=== PATIENT | male | born 1955 | race Caucasian/White ===

== ENCOUNTER 2024-04-07 10:14 | Inpatient (IN) ==
--- NOTE | 2024-03-24 09:32 | Anesthesiology Consultation ---
Date of Service March 24, 2024 Assessment & Plan (1) Encounter for pre-operative examination: - Check BSG DOS - Infectious disease screening: Per assessment on 03/24/24- No known recent infectious disease contacts or current infectious disease symptoms. Chart Review Chart Review: Acceptable Risk for Surgery and Patient NOT seen in Pre Admission Testing History Surgery Operation Date: 04/07/24 07:30 Proposed Procedures p Robotic Assisted Laparoscopic Radical Retropubic Prostatectomy, Possible Open, Possible Pelvic Pain Lymph Node Dissection - Kevin Yousif MD Height/Weight Height: 6 ft Weight: 86.183 kg Allergies Allergy/AdvReac Type Severity Reaction Status Date / Time No Known Allergies Allergy Verified 03/24/24 08:40 Medications Home Medications Medication Instructions Recorded Confirmed Last Taken amlodipine 10 mg tablet 10 mg PO QAM 09/21/23 03/24/24 Unknown aspirin 81 mg tablet,delayed 81 mg PO HS 09/21/23 03/24/24 Unknown release (Adult Aspirin Regimen) atenolol 50 mg tablet 50 mg PO QAM 09/21/23 03/24/24 Unknown esomeprazole magnesium 40 mg 40 mg PO QAM 09/21/23 03/24/24 Unknown capsule,delayed release glipizide 10 mg tablet 10 mg PO QAM 09/21/23 03/24/24 Unknown losartan 100 1 tab PO QAM 09/21/23 03/24/24 Unknown mg-hydrochlorothiazide 25 mg tablet lovastatin 40 mg tablet 40 mg PO QAM 09/21/23 03/24/24 Unknown metformin 1,000 mg tablet 1,000 mg PO BID 09/21/23 03/24/24 Unknown pioglitazone 30 mg tablet 30 mg PO QAM 09/21/23 03/24/24 Unknown semaglutide 2 mg/dose (8 mg/3 mL) 2 mg subcut Q7D 09/21/23 03/24/24 Unknown subcutaneous pen injector (Ozempic) potassium chloride 20 mEq 20 meq PO QAM 03/24/24 03/24/24 Unknown tablet,extended release Past Medical History Medical History GERD (gastroesophageal reflux disease) History of asthma As child, "outgrew it" Hyperlipidemia Hypertension Prostate cancer Dx 05/2023 Type 2 diabetes mellitus NIDDM Past Family History Family History Grandfather Diabetes Mother Hypertension Brother Prostate cancer Past Surgical History Surgical History Hx of arthroscopy of right knee Hx of cardiac cath 2013- no stents Hx of colonoscopy Hx of detached retina repair x2, right eye Hx of eye surgery "buckle/nimo piece put in eye" "Got most of right eye vision back" Hx of partial thyroidectomy ~2003 Hx of repair of right rotator cuff 25 years ago Social History Smoking Status: Never smoker Do You Dip or Chew Tobacco: No Hx Alcohol Use: Yes alcohol intake frequency: holidays/special occasions only Hx Substance Use: No substance use type: does not use Lab Results Anesthesia Preop Results Results Anesthesia Widget: WBC 4.38 K/uL L 03/10/24 Hgb 12.8 g/dL L 03/10/24 Hct 36.7 % L 03/10/24 Plt 224 K/uL (130.0-400.0) 03/10/24 Na 136 mmol/L (136-145) 03/10/24 K 4.0 mmol/L (3.5-5.1) 03/10/24 Cl 102 mmol/L (98-107) 03/10/24 CO2 31.1 mmol/L (21-32) 03/10/24 BUN 15.7 mg/dL (7-18) 03/10/24 Creat 1.12 mg/dL (0.6-1.4) 03/10/24 Glucose Level 187 mg/dL H 03/10/24 Testing Laboratory Results Urine culture (03/10/24): no growth PSA (03/10/24): 10.500 Electrocardiogram Date: 05/28/23 SR with first degree AVB with occasional supraventricular premature complexes at 65bpm. NS IVCD. Chest X-Ray Date: 03/10/24 Findings: + NAD Other Testing PET tumor skull-mid thigh Date: 01/20/24 FINDINGS: HEAD AND NECK: There is normal distribution of F-18 radiopharmaceutical in the visualized brain with no evidence of abnormal radiopharmaceutical uptake. It should be noted that a contrast enhanced CT or MRI is more sensitive for evaluation of brain masses. There is no FDG-avid disease or significant lymphadenopathy in the head and neck. A right thyroid nodule is incidentally seen. CHEST: There is no pleural or pericardial effusion. There is no air-space disease or suspicious lung nodule. No abnormal FDG activity is noted in the chest. ABDOMEN/PELVIS: Below the diaphragm, tracer is distributed physiologically in the gastrointestinal and genitourinary tracts. Faint prostatic focal uptake is seen in the left mid gland to apex, SUV max 3.76. Bilateral parapelvic cysts are seen. The appendix is normal. Diverticulosis is seen without diverticulitis. MUSCULOSKELETAL: There is no FDG-avid or destructive bone lesion. IMPRESSION: Uptake in the prostate compatible with primary disease with no evidence of metastatic foci.
[~2024-04-07 10:14] MED LIST: DEXAMETHASONE SOD INJ 4 MG/ML VIAL ONE; LIDOCAINE 2% 2 ML VIAL/AMP(20MG/ML) INFIL ONE; MIDAZOLAM HCL 1 MG/ML 2ML VIAL ONE; ONDANSETRON INJ 2 MG/ML 2 ML VIAL ONE; PROPOFOL IV EMULSION 10 MG/ML 20 ML VIAL IV ONE; ROCURONIUM BROMIDE 10 MG/ML 5 ML VIAL IV ONE; fentaNYL citrate PF 100 MCG/2 ML VIAL ONE
[2024-04-07] MEDS: LR 15ML/HR IV SCH (11:11)
[2024-04-07] MEDS: LACTATED RINGER'S 1,000 ML IV SCH (11:12)
[2024-04-07] MEDS: HEPARIN SOD 5,000 UNIT/0.5 ML VIAL SQ SCH ×2 (11:17→20:59)
--- NOTE | 2024-04-07 11:49 | History & Physical Report ---
Date of Service April 07, 2024 Assessment & Plan (1) Prostate cancer: Plan: We reviewed the plan for robotic radical prostatectomy and pelvic lymph node dissection. We reviewed risks and benefits of surgery. He expressed understanding and would like to proceed with surgery. History of Present Illness Primary Care Provider: Li Galaviz This is a 68-year-old male followed by urology for prostate cancer. He presents to the OR for robotic radical prostatectomy and pelvic lymph node dissection. He denies any changes in his health. Allergies Allergy/AdvReac Type Severity Reaction Status Date / Time No Known Allergies Allergy Verified 04/07/24 10:40 Home Medications Medication Instructions Recorded Confirmed Type amlodipine 10 mg tablet 10 mg PO QAM 09/21/23 04/07/24 History aspirin 81 mg tablet,delayed 81 mg PO HS 09/21/23 04/07/24 History release (Adult Aspirin Regimen) atenolol 50 mg tablet 50 mg PO QAM 09/21/23 04/07/24 History esomeprazole magnesium 40 mg 40 mg PO QAM 09/21/23 04/07/24 History capsule,delayed release glipizide 10 mg tablet 10 mg PO QAM 09/21/23 04/07/24 History losartan 100 1 tab PO QAM 09/21/23 04/07/24 History mg-hydrochlorothiazide 25 mg tablet lovastatin 40 mg tablet 40 mg PO QAM 09/21/23 04/07/24 History metformin 1,000 mg tablet 1,000 mg PO BID 09/21/23 04/07/24 History pioglitazone 30 mg tablet (Actos) 30 mg PO QAM 09/21/23 04/07/24 History semaglutide 2 mg/dose (8 mg/3 mL) 2 mg subcut Q7D 09/21/23 04/07/24 History subcutaneous pen injector (Ozempic) potassium chloride 20 mEq 20 meq PO QAM 03/24/24 04/07/24 History tablet,extended release Past Med/Surg History Problem List Encounter for pre-operative examination Prostate cancer Type 2 diabetes mellitus Elevated PSA Hypertension (Acute) Medical History GERD (gastroesophageal reflux disease) History of asthma As child, "outgrew it" Hyperlipidemia Hypertension Prostate cancer Dx 05/2023 Type 2 diabetes mellitus NIDDM Surgical History Hx of arthroscopy of right knee Hx of cardiac cath 2014- no stents Hx of colonoscopy Hx of detached retina repair x2, right eye Hx of eye surgery "buckle/nimo piece put in eye" "Got most of right eye vision back" Hx of partial thyroidectomy ~2003 Hx of repair of right rotator cuff 25 years ago Family History Grandfather Diabetes Mother Hypertension Brother Prostate cancer Social History Smoking Status: Never smoker Second Hand Exposure: No; Do You Dip or Chew Tobacco: No; Tobacco Cessation Education Requested by Patient: No Hx Alcohol Use: Yes Hx Substance Use: No Preferred Language: [place]ian Communication Ability: Effective Spring Inspector Required: No Beliefs That Will Affect Care: None Current Living Situation: Spouse Other Information That Helps Us Care for You: No Feels Safe at Home: Yes Safety Concerns: Feels Safe At This Time Assistive Devices: Glasses Review of Systems 12 point review of systems negative except for otherwise indicated. Physical Exam Constitutional: well developed and well nourished; no acute distress Eyes: + anicteric sclerae; pupils not irregula r Respiratory: normal respiratory effort; no respiratory distress, does not use accessory muscles and no cough Cardiovascular: well perfused Gastrointestinal (Abdomen): Inspection/Auscultation: abdomen normal to inspection; abdomen not distended Musculoskeletal: Extremities: extremities normal to inspection Skin: normal turgor; no rashes and no lesions Neurologic: moves all extremities and awake Psychiatric: Orientation: alert and oriented x 3 Results & Data Vital Signs (Past 12 Hours) Vital Signs Temp Pulse Resp BP Pulse Ox O2 Del Method 04/07/24 10:51 Room Air 04/07/24 10:51 37 C 79 20 156/93 H 98 Room Air
[2024-04-07] MEDS ORDERED: ePHEDrine sulfate 50 MG/5 ML SYR ONE (11:53)
[2024-04-07] MEDS ORDERED: fentaNYL citrate PF 100 MCG/2 ML VIAL IV PRN (12:09)
[2024-04-07] MEDS ORDERED: HYDROmorphone INJ 1 MG/ML SYRINGE IV PRN (12:09)
[2024-04-07] MEDS ORDERED: ATROPINE SULFATE 0.1 MG/ML 10ML SYR IV PRN (12:09)
[2024-04-07] MEDS ORDERED: ONDANSETRON INJ 2 MG/ML 2 ML VIAL IV PRN ×2 (12:09→18:22)
[2024-04-07] MEDS ORDERED: ePHEDrine sulfate 50 MG/ML AMP IV PRN (12:09)
[2024-04-07] MEDS: ceFAZolin 2000MG 2,000 MG/15 ML SYR IV SCH ×2 (12:14→20:59)
[2024-04-07] MEDS ORDERED: ONDANSETRON INJ 2 MG/ML 2 ML VIAL ONE (13:01)
[2024-04-07] MEDS ORDERED: HYDROmorphone INJ 2 MG/ML SYR/VIAL ONE ×2 (13:52→15:34)
[2024-04-07] MEDS ORDERED: PROPOFOL IV EMULSION 10 MG/ML 20 ML VIAL IV ONE ×2 (13:57→15:20)
[2024-04-07] MEDS ORDERED: ACETAMINOPHEN 1000 MG/100 ML IV IV ONE (15:14)
[2024-04-07] MEDS ORDERED: ceFAZolin 330 MG/ML 1 GM VIAL ONE (15:16)
[2024-04-07] MEDS: BUPIVACAINE 0.5 % 5 MG/1 ML MPF 30ML VIAL ONE (15:43)
[2024-04-07] MEDS ORDERED: SUGAMMADEX SODIUM 200 MG/2 ML VIAL IV ONE (15:49)
--- NOTE | 2024-04-07 16:04 | Operative Report ---
PG Post Operative Report Pre & Post Diagnosis Operation Date: 04/07/24 12:00 Pre-Op Diagnosis: Prostate Cancer Post-Op Diagnosis: Prostate Cancer I identified the patient and participated in the time-out.: Yes Procedure Operation Date: 04/07/24 12:00 Actual Procedures p Robotic Assisted Laparoscopic Radical Retropubic Prostatectomy, Bilateral Pelvic Lymph Node Dissection(Not Applicable) - Kevin Yousif MD Surgeon Kevin Yousif MD Hydramatic Mechanic SALOME Trimble Estimated Blood Loss 20 Findings Consistent with Post-Op Diagnosis Specimens 1) periprostatic fat 2) right pelvic lymph nodes 3) left pelvic lymph nodes 4) prostate, vas deferens, seminal vesicles Drains Mahajan catheter per urethra Anesthesia Type General Complications none Disposition Accompanied Patient To Recovery: Yes Disposition: Recovery Room Indications This is a 60-year-old male followed by urology for prostate cancer. He presents the OR for robotic radical prostatectomy. Description of Procedure The patient was identified in the preoperative holding area and informed consent was confirmed. He was then brought to the operating room where general anesthesia was initiated. He was placed supine on the operating room table with all pressure points appropriately padded. His abdomen and genitalia were prepped and draped in the usual sterile fashion and a timeout was performed. A 2 cm incision was made above the umbilicus and then a Veress needle was used to obtain access to the abdomen. Proper position was confirmed with the drop test and low initial insufflation pressure. The abdomen was insufflated with CO2 to a pressure of 15 mmHg. An 8 mm robotic port was placed in the incision and the robotic camera was inserted. The abdominal cavity was surveyed, demonstrating no injury to intra-abdominal contents. There were some colonic adhesions. The remaining robotic ports were placed under direct visualization, with 2 robotic ports on the left side and 1 robotic port on the right. A 5 mm patient support assistant port was placed in the right upper quadrant. The robot was then docked. The colonic adhesions were divided sharply. This exposed area in the right lower quadrant where the 12 mm patient support assistant port could be placed. Sigmoid adhesions in the left lower quadrant were divided sharply to allow the colon to rotate away from the pelvic vault. Using electrocautery, the bladder was then dropped from the anterior wall of the abdomen, exposing the space of Retzius. This dissection was carried down to expose the pelvic brim and subsequently the anterior surface of the prostate and the endopelvic fascia. The fat overlying the anterior of the prostate was removed and sent for pathologic analysis, labeled as 'periprostatic fat'. The endopelvic fascia was then divided on each side to expose the lateral aspects of the prostate and the lateral aspects of the pedicles. A single 3-0 V-Loc suture was used to ligate the dorsal venous complex to prevent backbleeding in subsequent steps. The fourth arm of the robot was then used to put some gentle traction on the bladder, and the bladder neck was identified. Using electrocautery, the anterior bladder neck was dissected to expose the Mahajan catheter, whose tip was removed from the bladder and held anteriorly. The posterior bladder neck dissection was then completed. At this point bilateral vas deferens were exposed and isolated. The vas deferens were cauterized and then divided. Bilateral seminal vesicles were dissected out as well. Denonvilliers fascia was then divided and the posterior prostate dissection was carried up as far as possible toward the urethra. The pedicles were then divided using combination of clips and sharp dissection, trying to use minimal electrocautery. On the right side, a nerve sparing approach was used. On the left side, a partial nerve sparing approach was used. Attention was turned anteriorly and the dorsal venous complex was divided using sharp dissection and electrocautery. The urethra was isolated and then divided sharply. At this point, the prostate was free and was placed in a specimen bag. Bilateral pelvic lymph node dissection was then performed, and the naseem tissue was sent for pathologic analysis. There was not a significant amount of naseem tissue bilaterally. The pelvis was inspected and meticulous hemostasis was ensured. Double-armed V- Loc suture was then used to re-anastomose the bladder neck with the urethra. Once this was complete, the anastomosis was tested by instilling 120 mL of normal saline into the bladder. Satisfied that the anastomosis was watertight, the catheter balloon was inflated with 10 mL of normal saline. Surgicel was then applied to the lateral aspects of the pelvis for hemostasis. The robot was then undocked. The supraumbilical incision was extended and the prostate was extracted. 0 Vicryl suture was then used to close the fascia at this incision. All skin incisions were closed with 4-0 Monocryl suture and then a layer of Dermabond was applied. The patient was then awakened from anesthesia and was brought to the PACU in stable condition. Rachel Guillard, FORENSIC DOCUMENT EXAMINER acted as the bedside patient support assistant for the duration of the case. She assisted with gaining access, providing retraction and suction. Passing in sutures and applying clips as needed. She also helped with specimen extraction and closing. I attest to the content of the Intraoperative Record and any orders documented therein. Any exceptions are noted below.
--- NOTE | 2024-04-07 16:49 | Anesthesiology Progress Note ---
Date of Service April 07, 2024 Anesthesia Post Procedure Vital Signs Vital Signs: Temp Pulse Resp BP Pulse Ox O2 Del Method 04/07/24 10:51 Room Air 04/07/24 10:51 37 C 79 20 156/93 H 98 Room Air Transfer of Care Handoff Completed per policy Notes Mental Status: alert / awake / arousable Patient Amnestic to Procedure: Yes Nausea / Vomiting: adequately controlled Pain: adequately controlled Airway Patency, RR, SpO2: stable & adequate BP & HR: stable & adequate Hydration State: stable & adequate Anesthetic Complications: no major complications apparent and Pt Satisfied with anesthetic care
[2024-04-07] MEDS ORDERED: PHARMACY GLYCEMIC MGMT CONSULT PRN (18:22)
[2024-04-07] MEDS ORDERED: oxyCODONE HCL IR 5 MG TAB (IMMEDIATE RELEASE) PO PRN ×2 (18:22)
[2024-04-07] MEDS ORDERED: HYDROmorphone INJ 0.5 MG/0.5 ML SYR IV PRN ×2 (18:22)
[2024-04-07] MEDS: ACETAMINOPHEN 325 MG TAB PO SCH (18:57)
[2024-04-07] MEDS: SODIUM CHLORIDE 0.9% 1,000 ML IV SCH (18:58)
[2024-04-07] MEDS ORDERED: GLUCOSE 10 TAB/TUBE PO PRN (18:59)
[2024-04-07] MEDS ORDERED: CARBOHYDRATES FOR HYPOGLYCEMIA PO PRN (18:59)
[2024-04-07] MEDS ORDERED: GLUCOSE 40% GEL 15 GM TUBE PO PRN (18:59)
[2024-04-07] MEDS ORDERED: DEXTROSE 50% 50 ML SYRINGE IV PRN (18:59)
[2024-04-07] MEDS ORDERED: GLUCAGON FOR INJ 1 MG VIAL SQ PRN (18:59)
[2024-04-07] MEDS: LANTUS PER UNIT CHARGE SQ ONE (20:59)
[2024-04-07] MEDS: DOCUSATE SODIUM 100 MG CAP PO SCH (20:59)
[2024-04-07] MEDS: INSULIN ASPART PER UNIT CHARGE SC SCH (20:59)
[2024-04-08] MEDS: INSULIN ASPART PER UNIT CHARGE SC SCH (00:46)
[2024-04-08 06:05] LABS: Basophils # (auto) 0.01 K/uL (0.00-0.20); Basophils % (auto) 0.1 %; Hematocrit (blood only) 30.6 % (42.0-52.0); Hemoglobin 10.7 g/dl (14.0-18.0); Immature Granulocytes # (auto) 0.03 K/uL (0.01-0.20); Immature Granulocytes % (auto) 0.4 %; Lymphocytes # (auto) 0.79 K/uL (1.20-3.40); Mean Corpuscular Hemoglobin 30.8 pg (25.0-34.0); Mean Corpuscular Volume 88.2 fL (80.0-100.0); Mean Platelet Volume 10.3 fL (9.4-12.4); Monocytes # (auto) 0.57 K/uL (0.11-0.59); Monocytes % (auto) 7.2 %; Neutrophils # (auto) 6.52 K/uL (1.40-6.50); Neutrophils % (auto) 82.3 %; Platelet Count 202 K/uL (130-400); RDW Coefficient of Variation 12.7 % (11.5-14.5); RDW Standard Deviation 40.8 fL (36.4-46.3); Red Blood Count 3.47 M/uL (4.70-6.10); White Blood Count 7.92 K/ul (4.8-10.8)
[2024-04-08 06:33] LABS: BUN Creatinine Ratio 14.9 (10-20); Calcium 8.7 mg/dl (8.6-10.3); Creatinine Clr Calc Pharmacy 64.1 ml/min; Potassium 3.4 mmol/L (3.5-5.1)
[2024-04-08 06:52] LABS: Estimated Average Glucose 186 mg/dl; Hemoglobin A1C 8.1 % (4.5-5.6)
[2024-04-08] MEDS: LOVASTATIN 20 MG TAB PO SCH (08:13)
[2024-04-08] MEDS: ATENOLOL 50 MG TABLET PO SCH (08:13)
[2024-04-08] MEDS: amLODIPine BESYLATE 5 MG TAB PO SCH (08:13)
[2024-04-08] MEDS: PANTOprazole 40 MG TAB PO SCH (08:13)
[2024-04-08] MEDS: LOSARTAN/HCTZ 50/12.5MG TAB PO SCH (08:13)
--- NOTE | 2024-04-08 08:17 | Urology Progress Note ---
Date of Service April 08, 2024 Assessment & Plan (1) Prostate cancer: Plan POD # 1 s/p Robotic Assisted Laparoscopic Radical Retropubic Prostatectomy, Bilateral Pelvic Lymph Node Dissection w/ - Feeling well, progressing as expected - Afebrile with stable vitals - Labs reviewed - WBC 7.92, Hemoglobin 10.7, Creatinine 1.21 - Torres draining clear yellow urine - Reports minimal pain - Ambulating without issue Plan: - Stable for discharge home today with torres catheter - Discharge instructions reviewed, all questions were answered. Admission and Anticipated Discharge Date Admission Date: April 07, 2024 Subjective Pt seen at bedside this AM Awake and resting in bed on arrival No acute distress Overall feeling well Reports minimal pain Denies f/c/n/v Tolerating diet Ambulating without issue Torres draining clear yellow urine Incisions appropriate Review of Systems Constitutional: as per Subjective / HPI Genitourinary: + as per Subjective / HPI Physical Exam Constitutional: no acute distress Respiratory: no respiratory distress and no labored breathing Gastrointestinal (Abdomen): Abd soft, non-tender. Incisions appropriate. Dermabond intact. Musculoskeletal: Head/Neck/Chest: normocephalic Skin: No visible rashes or lesions to exposed skin areas Neurologic: moves all extremities and awake Psychiatric: A+Ox3, euthymic affect Genitourinary: Torres intact and draining clear yellow urine Results & Data Vital Signs (Past 12 Hours) Vital Signs Temp Pulse Resp BP Pulse Ox O2 Del Method O2 Flow Rate 04/08/24 04:01 36.7 C 80 18 156/74 H 96 Room Air 04/07/24 23:48 36.6 C 85 18 155/85 H 96 Room Air 04/07/24 21:40 37 C 96 H 18 170/83 H 98 Nasal Cannula 2 04/07/24 20:59 Room Air, Nasal Cannula 2 PG Care Time/CCT Total # of Minutes Spent Total Time Spent with Patient: Total time spent is greater than 50% in coordination of care (as documented) at patient's floor/unit and/or counseling patient: Coding Level of Care Code None Diagnoses Prostate cancer C61
[2024-04-08] MEDS: LANTUS PER UNIT CHARGE SQ SCH (08:32)
--- NOTE | 2024-04-08 09:27 | Pharmacy Report ---
Pharmacy Glycemic Short Note 2 - Date of Service April 08, 2024 - Glycemic Short BSG Results (Last 24 hours): 04/07/24 04/07/24 04/07/24 10:38 16:26 20:41 Glucose POC Glucose 185 H 217 H 345 H* 04/07/24 04/08/24 04/08/24 20:44 00:33 00:36 Glucose POC Glucose 343 H* 339 H* 347 H* 04/08/24 04/08/24 04/08/24 03:47 05:32 07:52 Glucose 210 H POC Glucose 238 H 199 H OUTPATIENT ANTIDIABETIC REGIMEN: * Metformin 1g PO BIDM * Glipizide 10 mg PO qAM * Pioglitazone 30 mg PO qAM * Ozempic 2 mg SQ weekly HbA1c: 8.1% (04/08/24) ASSESSMENT: * GV is a 68 year old male POD #1 s/p robotic assisted laparoscopic radical retropubic prostatectomy * Received 8 mg IV dexamethasone in OR, no ongoing steroids ordered * Patient hyperglycemic postoperatively yesterday, received 20 units of basal and 20 units of bolus overnight * Patient will likely require SC basal/bolus regimen while inpatient given HbA1c on multiple antidiabetic agents as an outpatient PLAN FOR INPATIENT GLYCEMIC CONTROL: * Hold outpatient oral diabetes medications * Basal insulin * Lantus 15 units SQ qAM, reassess at HS * Bolus insulin * NovoLog per scale ACHS or Q6hrs while NPO * Goal Range: Low 110 mg/dL - High 140 mg/dL * Correction Factor: 30 mg/dL/unit * Nutritional / Prandial insulin per carb ratio of 1 unit per 9 grams CHO consumed
--- NOTE | 2024-04-08 10:52 | Discharge Summary ---
Date of Service April 08, 2024 Admission HPI Per Admitting Provider This is a 68-year-old male followed by urology for prostate cancer. He underwent robotic radical prostatectomy on 04/07/2024 and was admitted postoperatively in good condition. Admission Exam Per Admitting Provider Constitutional well developed and well nourished; no acute distress Eyes + anicteric sclerae; pupils not irregular Respiratory normal respiratory effort; no respiratory distress, does not use accessory muscles and no cough Cardiovascular well perfused Gastrointestinal (Abdomen) Inspection/Auscultation: abdomen normal to inspection; abdomen not distended Musculoskeletal Extremities: extremities normal to inspection Skin normal turgor; no rashes and no lesions Neurologic moves all extremities and awake Psychiatric Orientation: alert and oriented x 3 Principal Diagnosis Prostate cancer Discharge Exam Well-appearing, NAD Incisions intact, Dermabond in place, no bruising or discharge. Torres catheter in place draining blood-tinged urine Discharge Data Allergies Allergy/AdvReac Type Severity Reaction Status Date / Time No Known Allergies Allergy Verified 04/07/24 10:40 Procedures Performed Operation Date: 04/07/24 12:00 Actual Procedures p Robotic Assisted Laparoscopic Radical Retropubic Prostatectomy, Bilateral Pelvic Lymph Node Dissection(Not Applicable) - Kevin Yousif MD Hospital Course (1) Prostate cancer: He underwent radical prostatectomy on 04/07/2024. By 04/08, he was tolerating a diet, ambulating and pain was well-controlled. He was discharged home in good condition. Total Time Total Time Spent Total Time Spent (In Minutes): 15 Discharge Plan Discharge Items Patient Disposition: Home - Self-Care Reason For Visit: Prostate Cancer Discharge Diagnosis: Prostate cancer Activity: Per Instructions section Non-emergency contact: Urologist Call non-emergency contact if: you have any medication questions, your symptoms worsen, your pain is worsening, you have a fever, your temperature is above 101, your wound has increased redness, your wound has increased drainage and your wound pain has increased Follow-up/Referrals: Li Galaviz M.D. [Primary Care Provider] - Diet: Carb Consistent or DM2 Addtl Attending Provider Instructions: The surgery you had was: Robot-assisted radical prostatectomy with bilateral pelvic lymph node dissection. Please take all medications as prescribed and keep all follow-ups as scheduled. Please call our office at [phone] with any questions, concerns or need to reschedule appointments for any reason. We are happy to assist you Medications: Please take all medications as prescribed. For pain control, you can take tylenol every 6 hours. You can also take ibuprofen every 6 hours. If you have been prescribed a narcotic pain medication, please take this according to the instructions on the label. You have been prescribed a single dose of antibiotics (Bactrim) to be taken 1 hour prior to your appointment for torres catheter removal. Activity: We recommend having someone with you for the first few days after surgery to help care for you. For the first 2 weeks after surgery, we would like you to get up and walk around your house. However, we recommend limit physical activity that would increase your heart rate. This will allow your body to rest and heal. Take naps if you feel tired. Don't lift anything heavier than 10 pounds, mow the law or ride a bicycle until your follow-up appointment. Please avoid long car rides. Home Care: Unless directed otherwise, drink 6 to 8 glasses of water a day (enough to keep your urine light colored). This will also help keep a healthy flow of urine. We recommend using a stool softener such as colace or miralax for the first two weeks to avoid constipation. Torres Catheter care: Keep the catheter well secured with either a leg back or leg strap with large bag. Empty your bag when it's about half full. You may notice some blood in the bag. This is normal after surgery and while the catheter is in place. Use mild soap (such as Dove or Dial) and water to wash the catheter and the head of your penis daily, or more frequently if needed. Return to your normal diet, we encourage good protein intake to promote healing. You may shower as normal. Please avoid tub baths or soaking until catheter r emoved and incisions well healed. Wearing sweat pants while you have the catheter is recommended, they will be more comfortable. Follow-up We will have you come to the office in approximately 7 days for catheter removal. - Please remember to take your dose on antibiotics 1 hour prior to this appointment. We will review pathology results at that appointment and discuss further followup. Call [facility] at [phone] right away if you have any of the following: Chest pain or trouble breathing (call 911 or go to the hospital) Fever of 101F or higher, uncontrolled vomiting Heavy bleeding, clots, or bright red blood from the catheter Catheter that falls out or stops draining Foul-smelling discharge from your catheter Redness, swelling, warmth, or increased pain at your incision site Drainage, pus, or bleeding from your incision Pending Studies at Discharge: No Stand-Alone Forms: My [facility] [employer], Smoking Cessation Medications and DC Order Prescriptions: New sulfamethoxazole-trimethoprim [Bactrim DS] 800-160 mg tablet 1 tab PO ONCE 1 Days Qty: 1 0RF Continued glipizide 10 mg tablet 10 mg PO QAM metformin 1,000 mg tablet 1,000 mg PO BID Ozempic 2 mg/dose (8 mg/3 mL) pen injector 2 mg subcut Q7D Patient Comments: thursday morning pioglitazone [Actos] 30 mg tablet 30 mg PO QAM atenolol 50 mg tablet 50 mg PO QAM amlodipine 10 mg tablet 10 mg PO QAM losartan-hydrochlorothiazide 100-25 mg tablet 1 tab PO QAM aspirin [Adult Aspirin Regimen] 81 mg tablet,delayed release (DR/EC) 81 mg PO HS lovastatin 40 mg tablet 40 mg PO QAM esomeprazole magnesium 40 mg capsule,delayed release(DR/EC) 40 mg PO QAM potassium chloride 20 mEq Tablet Extended Release 20 meq PO QAM Discharge Orders: Discharge Order (Routine); Ordered 04/08/24 Ordered By: Najma Jefferson/Other Patient Handouts: High Blood Sugar (Hyperglycemia), Managing Type 2 Diabetes Admission Data Admit Date/Time: 04/07/24 16:09 Attending Provider: Kevin Yousif Admit Provider: Kevin Yousif Primary Care Provider: Li Galaviz Coding Level of Care Code 83772 IN/OBS DISCH 30 MIN/LESS Diagnoses Prostate cancer C61
[2024-04-08 12:32] VITALS: BP 148/84; PULSE 76; RESP 13; TEMP 98.2; O2SAT 94
== END 2024-04-08 15:31 | disposition home or self-care (01) | DRG 708 ==
LOC: ASU 10:14 → 3E 16:09